=== PATIENT | female | born 1990 | race African-American/Black ===

== ENCOUNTER 2019-08-22 11:28 | Emergency (ER) | payer OTHER ==
[~2019-08-22] VITALS: Ht 162.6 cm; Wt 81.6 kg
[2019-08-22] MEDS ORDERED: IBUPROFEN 800MG TABLET PO ONE (12:30)
[2019-08-22 13:32] VITALS: BP 98/61
== END 2019-08-22 13:37 | disposition home or self-care (01) ==
LOC: ER 11:28
DX: S89.82XA Other specified injuries of left lower leg, initial encounter (principal); W01.198A Fall on same level from slipping, tripping and stumbling with subsequent striking against other object, initial encounter; Y93.89 Activity, other specified; Y92.018 Other place in single-family (private) house as the place of occurrence of the external cause
CPT/HCPCS: 73562; 81025; 99283

== ENCOUNTER 2022-02-17 08:18 | Emergency (ER) | payer OTHER ==
[~2022-02-17] VITALS: Ht 165.1 cm; Wt 100.0 kg
[2022-02-17] MEDS ORDERED: AMOX1TAB16 PO (09:04)
[2022-02-17] MEDS ORDERED: TOPUD PO (09:04)
[2022-02-17] MEDS ORDERED: DEXAMETHASONE 10 MG/ML VIAL IM ONE (09:15)
[2022-02-17] MEDS ORDERED: KETOROLAC 60MG/2ML VIAL IM ONE (09:15)
[2022-02-17 09:27] VITALS: BP 120/85
== END 2022-02-17 09:32 | disposition home or self-care (01) ==
LOC: ER 08:18
DX: J02.0 Streptococcal pharyngitis (principal)
CPT/HCPCS: 87430; 96372; 99284; J1100; J1885

== ENCOUNTER 2022-03-03 07:32 | Emergency (ER) | payer OTHER ==
[~2022-03-03] VITALS: Ht 165.1 cm; Wt 100.0 kg
[~2022-03-03 07:32] MED LIST: AMOX1TAB16 PO; TOPUD PO
[2022-03-03] MEDS ORDERED: BENZ1LOZ73 MT (08:10)
[2022-03-03] MEDS ORDERED: NAPR-1176 MT (08:10)
[2022-03-03] MEDS ORDERED: KETOROLAC 30MG/ML VIAL IM ONE (08:15)
[2022-03-03 08:17] VITALS: BP 111/73
== END 2022-03-03 08:23 | disposition home or self-care (01) ==
LOC: ER 07:32
DX: J02.8 Acute pharyngitis due to other specified organisms (principal); E11.9 Type 2 diabetes mellitus without complications
CPT/HCPCS: 96372; 99283; J1885

== ENCOUNTER 2022-03-11 15:32 | Emergency (ER) | payer OTHER ==
[~2022-03-11] VITALS: Ht 165.1 cm; Wt 100.0 kg
[~2022-03-11 15:32] MED LIST changes: +BENZ1LOZ73 MT; +NAPR-1176 MT
[2022-03-11 15:45] VITALS: BP 107/69
[2022-03-11 18:30] LABS: CLARITY URINE TURBID (CLEAR); COLOR URINE ORANGE (YELLOW); KETONES URINE TRACE (NEGATIVE); LEUKOCYTE ESTERASE URINE 2+ (NEGATIVE); NITRITE URINE NEGATIVE (NEGATIVE); OCCULT BLOOD URINE 3+ (NEGATIVE); PROTEIN URINE 3+ (NEGATIVE)
[2022-03-11] MEDS ORDERED: NITR-87 MT (18:43)
== END 2022-03-11 19:01 | disposition home or self-care (01) ==
LOC: ER 15:32
DX: N39.0 Urinary tract infection, site not specified (principal); E11.9 Type 2 diabetes mellitus without complications
CPT/HCPCS: 81003; 81025; 87077; 87186; 99283